=== PATIENT | male | born 1965 | race Caucasian/White ===

== ENCOUNTER 2016-08-03 18:27 | Emergency (ER) | payer MEDICARE, MEDICAID ==
[2016-08-03 19:42] VITALS: BP 134/65
--- NOTE | 2016-08-03 20:28 | UC ---
Head Injury HPI - History Of Current Complaint Chief Complaint: UCHeadInjury Stated Complaint: HEAD INJURY FROM FALL Time Seen by Provider: 08/03/16 20:22 Hx Obtained From: Family/Home Economist Hx From Patient Unobtainable Due To: Other - Mental retardation. Onset/Duration: Sudden Onset - 1730 hit spiritism with no obvious injury. Observed. Severity Currently: Mild Severity Initially: Mild Associated Signs And Symptoms: Positive: Negative - Risk Factors SDH Risk Factor: Recent Trauma - Allergies/Home Medications Allergies/Adverse Reactions: Allergies Allergy/AdvReac Type Severity Reaction Status Date / Time No Known Allergies Allergy Verified 08/03/16 19:35 Home Medications: Home Medications Atorvastatin* [Lipitor*] 10 mg PO DAILY 08/03/16 [History Confirmed 08/03/16] Cetirizine* [ZyrTEC*] 10 mg PO DAILY 08/03/16 [History Confirmed 08/03/16] Levothyroxine TAB* [Synthroid TAB*] 75 mcg PO DAILY 08/03/16 [History Confirmed 08/03/16] Omeprazole CAP* [Prilosec CAP* 20 MG] 20 mg PO BID 08/03/16 [History Confirmed 08/03/16] PMH/Surg Hx/FS Hx/Imm Hx Previously Healthy: No - Mental retardation Endocrine History Of: Reports: Thyroid Disease Denies: Diabetes Cardiovascular History Of: Denies: Cardiac Disorders, Hypertension Respiratory History Of: Denies: COPD, Asthma GI/ History Of: Denies: Ulcer - Surgical History Surgical History: Yes Surgery Procedure, Year, and Place: LYMPH NODE BIOPSY. SX REPAIR OF LEFT HIP FX - Family History Known Family History: Positive: Unknown - patient not aware with MR - Social History Occupation: Disabled Lives: [employer] Alcohol Use: None Substance Use Type: None Smoking Status (MU): Never Smoked Tobacco Have You Smoked in the Last Year: No Review of Systems All Other Systems Reviewed And Are Negative: Yes Physical Exam Triage Information Reviewed: Yes Appearance: Well-Appearing, No Pain Distress, Well-Nourished Vital Signs: Initial Vital Signs Temp 97.8 F 08/03/16 19:35 Pulse 81 08/03/16 19:35 Resp 16 08/03/16 19:35 BP 134/65 08/03/16 19:35 Pulse Ox 98 08/03/16 19:35 Vital Signs Reviewed: Yes Eyes: Positive: Conjunctiva Clear Neck exam: Normal Neck: Positive: Nontender Respiratory Exam: Normal Cardiovascular Exam: Normal Musculoskeletal Exam: Normal Neurological Exam: Normal, Other - speech somewhat limited. Psychological Exam: Normal Skin Exam: Normal Head Injury Course/Dx - Differential Dx/Diagnosis Differential Diagnosis/HQI/PQRI: Cerebral Contusion, Concussion Without LOC, Contusion Provider Diagnoses: Contusion forehead Discharge - Discharge Plan Condition: Stable Disposition: HOME Patient Education Materials: Facial Contusion (ED) Images Head: 1 - Area of trauma with no swelling or bruising. Pt complains of some tenderness.
== END 2016-08-03 20:44 | disposition home or self-care (01) ==
LOC: UCCORT 18:27
DX: S00.83XA Contusion of other part of head, initial encounter (principal); W22.8XXA Striking against or struck by other objects, initial encounter; Y93.9 Activity, unspecified; Y92.9 Unspecified place or not applicable; F79 Unspecified intellectual disabilities; E07.9 Disorder of thyroid, unspecified
CPT/HCPCS: 99211; G0463

== ENCOUNTER 2017-08-13 15:04 | Emergency (ER) | payer MEDICARE, MEDICAID ==
[2017-08-13 15:28] VITALS: BP 121/91
--- NOTE | 2017-08-13 15:40 | UC ---
General HPI - HPI Summary HPI Summary: senior care resident brought for assessment by staff and his sister due to one day history of seeming more fatigued, rubbing at his eyes, and increased appearance of jaundice. History of Gilbert's. No recent fever, appetite change, weight loss, change of meds aside from d/c iron a few weeks ago. No diarrhea or vomiting. No abdominal pain. On atorvastatin, labs recently stable. - History of Current Complaint Chief Complaint: UCEye Stated Complaint: EYES AND FACE YELLOW Time Seen by Provider: 08/13/17 15:25 Hx Obtained From: Family/News Editor - here with his sister and [facility] staff member Onset/Duration: Gradual Onset, Lasting Hours - about 6 Timing: Constant Pain Intensity: 4 Pain Location at: eyes? this is manifested by rubbing, no discharge or photophobia. Similar Episode/Dx as: jaundice - Allergy/Home Medications Allergies/Adverse Reactions: Allergies Allergy/AdvReac Type Severity Reaction Status Date / Time No Known Allergies Allergy Verified 08/03/16 19:35 Home Medications: Home Medications Albuterol HFA INHALER* [Ventolin HFA Inhaler*] 08/13/17 [History] Listerine 08/13/17 [History] PMH/Surg Hx/FS Hx/Imm Hx Previously Healthy: No - cerebral palsy with mental retardation. GI/ History: Gastroesophageal Reflux, Other - Gilbert's Other GI/ History: Gilbert's syndrome. Cancer History: Other - lymphoma in 1992 Other Cancer History: lymphoma 1992 - Surgical History Surgical History: Yes Surgery Procedure, Year, and Place: LYMPH NODE BIOPSY. SX REPAIR OF LEFT HIP FX - Family History Known Family History: Positive: Unknown - patient not aware with MR - Social History Occupation: Disabled Lives: Alf Alcohol Use: None Substance Use Type: None Smoking Status (MU): Never Smoked Tobacco Have You Smoked in the Last Year: No Review of Systems Constitutional: Fatigue Skin: Other - possible jaundice Eyes: Eye Redness - mild injection, no discharge. ENT: Negative Respiratory: Negative Cardiovascular: Negative Gastrointestinal: Negative Genitourinary: Negative Motor: Negative Neurovascular: Negative Musculoskeletal: Negative Neurological: Negative Psychological: Negative Is Patient Immunocompromised?: No All Other Systems Reviewed And Are Negative: Yes Physical Exam Triage Information Reviewed: Yes Appearance: Well-Appearing - alert, interactive, averbal. Sallow complexion ? jaundice., Pain Distress - does not appear distressed., Thin Vital Signs: Initial Vital Signs Temp 98.5 F 08/13/17 15:15 Pulse 90 08/13/17 15:15 Resp 16 08/13/17 15:15 BP 121/91 08/13/17 15:15 Pulse Ox 100 08/13/17 15:15 Eyes: Positive: Conjunctiva Inflamed - very mild injection, no discharge or crusting. ENT: Positive: Pharynx normal Neck: Positive: Supple, Nontender Respiratory: Positive: Lungs clear, Normal breath sounds Cardiovascular: Positive: RRR, No Murmur Abdomen Description: Positive: Nontender, No Organomegaly, Soft Musculoskeletal Exam: Other - abnormal gait Neurological: Positive: Alert Skin Exam: Other - skin tone yellow ? jaundice Course/Dx - Course Course Of Treatment: labs drawn. No clinical symptoms suggestive of liver inflammation, no recent medication changes or illness identified. Here for assessment. - Differential Dx - Multi-Symptom Provider Diagnoses: possible jaundice; Gilbert's syndrome. Discharge - Discharge Plan Condition: Stable Disposition: HOME Patient Education Materials: Jaundice (ED) Referrals: Ronna Maravilla MD [Primary Care Provider] - Additional Instructions: Labs have been ordered to assess bilirubin level given history of clinical change. However, vital signs are normal, and no particular illness has been identified. Lab results will be available tomorrow. Abnormal results will be called; I suggest sending a copy to Dr. Maravilla for review and comparison to old levels.
[2017-08-13 19:50] LABS: ABS Basophils 0 10^3/ul (0-0.2); ABS Eosinophils 0.3 10^3/ul (0-0.6); ABS Lymphocytes 2.5 10^3/ul (1.0-4.8); ABS Monocytes 0.7 10^3/ul (0-0.8); ABS Neutrophils 3.8 10^3/ul (1.5-7.7); ABS Nucleated RBC 0 10^3/ul; Eosinophil % 3.6 % (0-6); Hematocrit 41 % (42-52); Hemoglobin 13.9 g/dl (14.0-18.0); Lymphocyte % 34.5 % (25-47); Mean Corpuscular HGB Conc 34 g/dl (31-36); Mean Corpuscular Hemoglobin 33 pg (27-31); Mean Corpuscular Volume 98 fL (80-94); Mean Platelet Volume 7 um3 (7.4-10.4); Nucleated Red Blood Cells % 0; Platelet Count 205 10^3/ul (150-450); Red Blood Count 4.18 10^6/ul (4.0-5.4); Red Cell Distribution Width 16 % (10.5-15); White Blood Count 7.3 10^3/ul (3.5-10.8)
[2017-08-13 20:04] LABS: EGFR Non-African American 106.9 (>60)
--- NOTE | 2017-08-14 08:37 | UC ---
- Progress Note Progress Note: elevated T Bili c/w [place] [facility] Has an elevated alk phos that should be followed up with his provider please notify
== END 2017-08-13 16:11 | disposition home or self-care (01) ==
LOC: UCCORT 15:04
DX: E80.4 Gilbert syndrome (principal); G80.9 Cerebral palsy, unspecified; F79 Unspecified intellectual disabilities
CPT/HCPCS: 36415; 80053; 85025; 99211; G0463

== ENCOUNTER 2018-11-22 15:42 | Emergency (ER) | payer MEDICARE, MEDICAID ==
[2018-11-22 16:26] VITALS: BP 134/70
--- NOTE | 2018-11-22 16:38 | UC ---
Respiratory Complaint HPI - HPI Summary HPI Summary: Pt is accompanied by halfway caregiver. Caregiver states that pt has not been "himself" has had productive cough, fever, decreased appetite and appears to "not feel well" X 1 week. Pt has seasonal allergies and takes zyrtec daily. - History of Current Complaint Chief Complaint: UCRespiratory Stated Complaint: FEVER,COUGH Time Seen by Provider: 11/22/18 16:16 Hx Obtained From: Family/Inspection Supervisor Hx From Patient Unobtainable Due To: Other - cognitive disability Onset/Duration: Lasting Days, Still Present, Worse Since - onset Timing: Constant Severity Initially: Mild Severity Currently: Moderate Pain Intensity: 0 Character: Cough: Productive Aggravating Factors: Deep Breaths, Recumbent Position Alleviating Factors: Nothing Associated Signs And Symptoms: Positive: Fever, URI, Nasal Congestion - Risk Factors Pulmonary Embolism Risk Factors: Negative Cardiac Risk Factors: Negative Pseudomonas Risk Factors: Negative Tuberculosis Risk Factors: Communal Living - Allergies/Home Medications Allergies/Adverse Reactions: Allergies Allergy/AdvReac Type Severity Reaction Status Date / Time No Known Allergies Allergy Verified 11/22/18 16:21 Home Medications: Home Medications Acetaminophen TAB* [Tylenol TAB*] 650 mg PO Q4H PRN 11/22/18 [History Confirmed 11/22/18] Albuterol HFA INHALER* [Ventolin HFA Inhaler*] 2 puff INH Q4H PRN 11/22/18 [ History Confirmed 11/22/18] Albuterol/Ipratropium RESP(NF) [Combivent Respimat (NF)] 1 puff INH Q6HR PRN [History Confirmed 11/22/18] Ferrous Sulfate TAB* 325 mg PO DAILY 11/22/18 [History Confirmed 11/22/18] PMH/Surg Hx/FS Hx/Imm Hx Previously Healthy: Yes - Surgical History Surgical History: Yes Surgery Procedure, Year, and Place: LYMPH NODE BIOPSY. SX REPAIR OF LEFT HIP FX - Family History Known Family History: Positive: Unknown - patient not aware with MR - Social History Occupation: Disabled Lives: Detention Alcohol Use: None Substance Use Type: None Smoking Status (MU): Former Smoker Have You Smoked in the Last Year: No - Immunization History Vaccination Up to Date: Yes Review of Systems All Other Systems Reviewed And Are Negative: Yes Constitutional: Positive: Fever, Fatigue Skin: Positive: Negative Eyes: Positive: Negative ENT: Positive: Sinus Congestion Respiratory: Positive: Cough Cardiovascular: Positive: Negative Gastrointestinal: Positive: Negative Genitourinary: Positive: Negative Motor: Positive: Negative Neurovascular: Positive: Negative Musculoskeletal: Positive: Negative Neurological: Positive: Negative Psychological: Positive: Negative Is Patient Immunocompromised?: No Physical Exam Triage Information Reviewed: Yes Appearance: Ill-Appearing, Thin Vital Signs: Initial Vital Signs Temp 98.2 F 11/22/18 16:17 Pulse 82 11/22/18 16:17 Resp 20 11/22/18 16:17 BP 134/70 11/22/18 16:17 Pulse Ox 96 11/22/18 16:17 Vital Signs Reviewed: Yes Eye Exam: Normal ENT: Positive: Nasal congestion Dental Exam: Normal Neck exam: Normal Respiratory: Positive: Decreased breath sounds - bilateral bases Cardiovascular Exam: Normal Musculoskeletal Exam: Normal Neurological Exam: Normal Psychological Exam: Normal Skin Exam: Normal Respiratory Course/Dx - Differential Dx/Diagnosis Differential Diagnosis/HQI/PQRI: Bronchitis Provider Diagnosis: Bronchitis Discharge - Sign-Out/Discharge Documenting (check all that apply): Patient Departure All imaging exams completed and their final reports reviewed: No Studies - Discharge Plan Condition: Stable Disposition: HOME Prescriptions: Azithromycin TAB* [Zithromax TAB (Z-VERN) 250 mg #6 tabs] 2 tab PO .TODAY, THEN 1 DAILY #1 vern Patient Education Materials: Acute Bronchitis (ED) Referrals: Ronna Maravilla MD [Primary Care Provider] - If Needed - Billing Disposition and Condition Condition: STABLE Disposition: Home
== END 2018-11-22 16:49 | disposition home or self-care (01) ==
LOC: UCCORT 15:42
DX: J40 Bronchitis, not specified as acute or chronic (principal); Z87.891 Personal history of nicotine dependence
CPT/HCPCS: 99212; G0463

== ENCOUNTER 2018-12-17 18:39 | Emergency (ER) | payer MEDICARE, MEDICAID ==
[2018-12-17 19:14] VITALS: BP 106/74
--- NOTE | 2018-12-17 19:29 | UC ---
General HPI - HPI Summary HPI Summary: 53-year-old male comes in with a chief complaint of just having suffered a choking on food episode. He was eating a hamburger and he started choking and the staff where he lives did a Heimlich maneuver which then made the fluid come out. Patient's been well ever since. No loss of consciousness. of any shortness of breath at this time. - History of Current Complaint Chief Complaint: UCGeneralIllness Stated Complaint: CHECK UP FROM [place]OK[place] INCIDENT Time Seen by Provider: 12/17/18 19:09 Pain Intensity: 0 - Allergy/Home Medications Allergies/Adverse Reactions: Allergies Allergy/AdvReac Type Severity Reaction Status Date / Time No Known Allergies Allergy Verified 12/17/18 19:14 PMH/Surg Hx/FS Hx/Imm Hx Previously Healthy: Yes - Surgical History Surgical History: Yes Surgery Procedure, Year, and Place: LYMPH NODE BIOPSY. SX REPAIR OF LEFT HIP FX - Family History Known Family History: Positive: Unknown - patient not aware with MR - Social History Alcohol Use: None Substance Use Type: None Smoking Status (MU): Former Smoker Have You Smoked in the Last Year: No - Immunization History Vaccination Up to Date: Yes Review of Systems All Other Systems Reviewed And Are Negative: Yes Constitutional: Positive: Negative Skin: Positive: Negative Eyes: Positive: Negative ENT: Positive: Negative Respiratory: Positive: Other - see hpi Cardiovascular: Positive: Negative Gastrointestinal: Positive: Negative Motor: Positive: Negative Neurovascular: Positive: Negative Musculoskeletal: Positive: Negative Neurological: Positive: Negative Psychological: Positive: Negative Is Patient Immunocompromised?: No Physical Exam Triage Information Reviewed: Yes Appearance: Well-Appearing, No Pain Distress, Well-Nourished Vital Signs: Initial Vital Signs Temp 98.4 F 12/17/18 19:09 Pulse 86 12/17/18 19:09 Resp 16 12/17/18 19:09 BP 106/74 12/17/18 19:09 Pulse Ox 98 12/17/18 19:09 Vital Signs Reviewed: Yes Eye Exam: Normal Eyes: Positive: Conjunctiva Clear ENT: Negative: Muffled voice, Hoarse voice Neck: Positive: Supple Respiratory: Positive: Lungs clear, Normal breath sounds, No respiratory distress Cardiovascular: Positive: RRR Musculoskeletal Exam: Normal Musculoskeletal: Positive: Strength Intact, ROM Intact Neurological Exam: Normal Neurological: Positive: Alert, Muscle Tone Normal Psychological Exam: Normal Psychological: Positive: Age Appropriate Behavior Skin Exam: Normal Course/Dx - Course Course Of Treatment: I discussed the x-ray with the patient and his caregiver. I do not see any acute disease process a do not see any aspiration infiltrate. Radiologist reading is pending. Patient's no acute distress here lung sounds are normal vital signs are normal. Overall plan is if the patient gets worse he needs he reevaluated. - Diagnoses Provider Diagnosis: Choking episode Discharge - Sign-Out/Discharge Documenting (check all that apply): Patient Departure All imaging exams completed and their final reports reviewed: No - Discharge Plan Condition: Stable Disposition: HOME Patient Education Materials: Aspiration Precautions (ED) Referrals: Ronna Maravilla MD [Primary Care Provider] - Additional Instructions: FOLLOW UP WITH YOUR DOCTOR IF NOT COMPLETELY IMPROVED. GET REEVALUATED SOONER IF WORSE OR ANY QUESTIONS OR CONCERNS. - Billing Disposition and Condition Condition: STABLE Disposition: Home
--- NOTE | 2018-12-18 11:51 | UC ---
- Progress Note Progress Note: Xray is neg. NAD. c/w Dr Tejeda interpretation Course/Dx - Diagnoses Provider Diagnoses: Choking episode Discharge - Sign-Out/Discharge Documenting (check all that apply): Post-Discharge Follow Up All imaging exams completed and their final reports reviewed: Yes - Discharge Plan Condition: Stable Disposition: HOME Patient Education Materials: Aspiration Precautions (ED) Referrals: Ronna Maravilla MD [Primary Care Provider] - Additional Instructions: FOLLOW UP WITH YOUR DOCTOR IF NOT COMPLETELY IMPROVED. GET REEVALUATED SOONER IF WORSE OR ANY QUESTIONS OR CONCERNS. - Billing Disposition and Condition Condition: STABLE Disposition: Home
== END 2018-12-17 19:42 | disposition home or self-care (01) ==
LOC: UCCORT 18:39
DX: T17.928A Food in respiratory tract, part unspecified causing other injury, initial encounter (principal); X58.XXXA Exposure to other specified factors, initial encounter; Y93.89 Activity, other specified; Y92.009 Unspecified place in unspecified non-institutional (private) residence as the place of occurrence of the external cause; Z87.891 Personal history of nicotine dependence
CPT/HCPCS: 71046; 99211; G0463